=== PATIENT | male | born 1995 | race Two or more races ===

== ENCOUNTER → 2019-09-20 | Emergency (ER) | payer OTHER ==
[~2019-09-20] VITALS: Ht 182.9 cm; Wt 113.4 kg
[~2019-09-20] MED LIST: DOLOGESIC 500-1 EACH PO; EPANED1 MG/1 M1; LEVOTHYROXINE25 MCG
== END | disposition home or self-care (01) ==
LOC: ER 17:02
DX: I16.0 Hypertensive urgency (principal); I10 Essential (primary) hypertension; R51 Headache

== ENCOUNTER → 2021-02-20 | Emergency (ER) | payer OTHER ==
[~2021-02-20] VITALS: Ht 182.9 cm; Wt 120.2 kg
[~2021-02-20] MED LIST changes: +AMLODIPINE-OLM1 EAC3; +AMODIPINE; +DIOVAN320 MG; +TOPROL XL50 M1
== END | disposition home or self-care (01) ==
LOC: ER 21:19
DX: R11.0 Nausea (principal); M79.622 Pain in left upper arm; T50.B95A Adverse effect of other viral vaccines, initial encounter; Y92.89 Other specified places as the place of occurrence of the external cause